=== PATIENT | male | born 1965 | race Caucasian/White ===

== ENCOUNTER 2016-10-12 11:31 | Emergency (ER) | payer OTHER ==
[~2016-10-12] VITALS: Ht 170.2 cm; Wt 122.8 kg
[~2016-10-12 11:31] MED LIST: ATENOLOL100 MG PO; BENADRYL ALLERG25 MG PO; CLEOCIN300 MG PO; CLINDAMYCIN HC300 MG PO; COLCRYS0.6 MG PO; CYMBALTA30 MG PO; DILAUDID 11 MG/1 ML IV; HYZAAR 100-21 TABLET PO; LEVOTHROID125 MCG PO; LOPID600 MG PO; PREDNISONE20 MG PO; SOMA350 MG PO; VICODIN 5-3001 EACH PO; VICODIN,LORT1 TABLET PO
[2016-10-12 12:00] VITALS: BP 128/91
== END 2016-10-12 13:21 | disposition left against medical advice (07) ==
LOC: EME → EDBD 11:31 → EME 13:21
DX: T42.8X1A Poisoning by antiparkinsonism drugs and other central muscle-tone depressants, accidental (unintentional), initial encounter (principal); I10 Essential (primary) hypertension; E03.9 Hypothyroidism, unspecified; M19.90 Unspecified osteoarthritis, unspecified site
CPT/HCPCS: 80053; 81003; 85027; 99281; 99284; G0480

== ENCOUNTER 2017-11-02 18:51 | Inpatient (IN) | payer OTHER ==
[~2017-11-02] VITALS: Ht 170.2 cm; Wt 129.8 kg
[~2017-11-02 18:51] MED LIST changes: -LEVOTHROID125 MCG PO; +SYNTHROID125 MCG PO
[2017-11-02 19:58] LABS: HEMATOCRIT 38.2 % (38.0-50.0); HEMOGLOBIN 13.4 G/DL (12.5-16.6); MCH 31.2 PG (29.0-34.0); MCHC 35.1 G/DL (30.0-36.0); PLATELET COUNT 255 K/uL (156-360); RBC DIS.WIDTH-CV 13.7 % (11.8-14.6); RBC DIS.WIDTH-SD 44.7 % (39-53); RED BLOOD COUNT 4.29 M/uL (4.00-5.50); WHITE BLOOD COUNT 15.8 K/uL (4.1-10.2)
[2017-11-02 20:04] LABS: ALBUMIN 3.7 g/dL (3.2-4.8); CHLORIDE 105 mEq/L (99-109); POTASSIUM 3.4 mEq/L (3.7-5.4); SODIUM 139 mEq/L (136-147)
[2017-11-02 20:07] LABS: GLUCOSE 222 mg/dL (70-99); TOTAL PROTEIN 8.2 g/dL (6.4-8.3)
[2017-11-02 20:09] LABS: TOTAL BILIRUBIN 0.1 mg/dL (0.0-1.0)
[2017-11-02 20:10] LABS: ALKALINE PHOSPHATASE 118 IU/L (3-129); GFR ESTIMATE (CALCULATED) > 59 mL/min/ (58.99-99999)
[2017-11-02 20:11] LABS: UREA NITROGEN (BUN) 31 mg/dL (9-23)
[2017-11-02 20:12] LABS: AST (GOT) 27 IU/L (2-34)
[2017-11-02 20:13] LABS: ALT (GPT) 34 IU/L (3-49)
[2017-11-02] MEDS ORDERED: METFORMIN HCL500 MG PO (23:20)
[2017-11-02] MEDS ORDERED: AMARYL4 MG PO (23:20)
[2017-11-02] MEDS ORDERED: GEMFIBROZIL600 MG PO (23:20)
[2017-11-02] MEDS ORDERED: IBUPROFEN400 MG PO (23:20)
[2017-11-02] MEDS ORDERED: LISINOPRIL2.5 MG PO (23:20)
[2017-11-02] MEDS ORDERED: TRESIBA FL100 UNIT/1 SC (23:21)
[2017-11-02] MEDS ORDERED: GABAPENTIN300 MG PO (23:21)
[2017-11-03 05:15] VITALS: BP 128/85
[2017-11-03 05:41] LABS: HEMATOCRIT 35.9 % (38.0-50.0); HEMOGLOBIN 12.4 G/DL (12.5-16.6); MCHC 34.5 G/DL (30.0-36.0); MCV 89.8 FL (86-99); PLATELET COUNT 278 K/uL (156-360); RBC DIS.WIDTH-CV 13.9 % (11.8-14.6); RBC DIS.WIDTH-SD 45.7 % (39-53); WHITE BLOOD COUNT 18.2 K/uL (4.1-10.2)
[2017-11-03 06:48] LABS: CHLORIDE 104 MEQ/L (99-109); CREATININE 0.7 MG/DL (0.6-1.3); GFR ESTIMATE (CALCULATED) > 59 mL/min/ (58.99-99999); GLUCOSE 230 mg/dL (70-99); POTASSIUM 3.7 MEQ/L (3.7-5.4); SODIUM 137 MEQ/L (136-147); UREA NITROGEN (BUN) 18 mg/dL (9-23)
[2017-11-03 09:15] VITALS: BP 138/90
[2017-11-03 11:18] VITALS: BP 122/73
[2017-11-03 15:40] VITALS: BP 131/76
[2017-11-03 21:00] VITALS: BP 171/75
[2017-11-04 04:03] VITALS: BP 139/65
[2017-11-04 11:02] VITALS: BP 140/8
[2017-11-04 16:38] VITALS: BP 168/84
[2017-11-04 21:00] VITALS: BP 155/78
[2017-11-05 00:06] VITALS: BP 129/71
[2017-11-05 05:07] VITALS: BP 154/86
[2017-11-05 05:45] LABS: HEMATOCRIT 32.3 % (38.0-50.0); HEMOGLOBIN 10.8 G/DL (12.5-16.6); MCH 30.4 PG (29.0-34.0); MCHC 33.4 G/DL (30.0-36.0); PLATELET COUNT 290 K/uL (156-360); RBC DIS.WIDTH-CV 14.2 % (11.8-14.6); RBC DIS.WIDTH-SD 47.3 % (39-53); RED BLOOD COUNT 3.55 M/uL (4.00-5.50); WHITE BLOOD COUNT 16.6 K/uL (4.1-10.2)
[2017-11-05 08:08] VITALS: BP 130/74
[2017-11-05 10:25] VITALS: BP 133/79
[2017-11-05 13:48] LABS: HEMOGLOBIN A1c (GLYCOHEMOGLOB) 11.2 % (Below 5.7)
[2017-11-05 16:01] VITALS: BP 125/82
[2017-11-05 19:00] VITALS: BP 153/77
[2017-11-06 00:09] VITALS: BP 137/82
[2017-11-06 04:07] VITALS: BP 137/85
[2017-11-06 06:17] LABS: HEMATOCRIT 30.4 % (38.0-50.0); HEMOGLOBIN 10.5 G/DL (12.5-16.6); MCV 91.6 FL (86-99)
[2017-11-06 06:34] LABS: CHLORIDE 108 MEQ/L (99-109); CREATININE 0.5 MG/DL (0.6-1.3); GFR ESTIMATE (CALCULATED) > 59 mL/min/ (58.99-99999); GLUCOSE 188 mg/dL (70-99); MAGNESIUM 1.5 mg/dl (1.3-2.7); PHOSPHORUS 2.4 mg/dL (2.5-4.9); POTASSIUM 3.7 MEQ/L (3.7-5.4); SODIUM 141 MEQ/L (136-147); UREA NITROGEN (BUN) 11 mg/dL (9-23)
[2017-11-06 11:15] VITALS: BP 140/91
[2017-11-06] MEDS ORDERED: HYDROCODON-ACE1 EAC9 PO (14:58)
[2017-11-06] MEDS ORDERED: DILAUDID2 MG PO (14:58)
[2017-11-06] MEDS ORDERED: KEFLEX500 MG PO (15:06)
[2017-11-06 15:25] VITALS: BP 168/76
== END 2017-11-06 18:09 | disposition home or self-care (01) | DRG 854 ==
LOC: EME 18:51 → 5WEST 23:26 → EDOF 23:26 → ENRESERV 23:34 → EDOF 11-03 01:32 → ENRESERV 11-03 01:36 → 5WEST 11-03 05:06
PROVIDERS: Hospitalist; Internal Medicine; Thoracic Surgery (Cardiothoracic Vascular Surgery)
DX: A41.9 Sepsis, unspecified organism (principal); L02.11 Cutaneous abscess of neck; L03.313 Cellulitis of chest wall; L02.01 Cutaneous abscess of face; A49.01 Methicillin susceptible Staphylococcus aureus infection, unspecified site; E11.9 Type 2 diabetes mellitus without complications; Z68.41 Body mass index [BMI] 40.0-44.9, adult; L73.9 Follicular disorder, unspecified; I10 Essential (primary) hypertension; E78.5 Hyperlipidemia, unspecified; E03.9 Hypothyroidism, unspecified; E66.9 Obesity, unspecified; M19.90 Unspecified osteoarthritis, unspecified site; M10.9 Gout, unspecified; G89.4 Chronic pain syndrome; Z86.14 Personal history of Methicillin resistant Staphylococcus aureus infection; Z79.4 Long term (current) use of insulin; Z82.5 Family history of asthma and other chronic lower respiratory diseases; Z82.49 Family history of ischemic heart disease and other diseases of the circulatory system; Z80.7 Family history of other malignant neoplasms of lymphoid, hematopoietic and related tissues
CPT/HCPCS: 70491; 71260; 80048; 80053; 80202; 82948; 83036; 83605; 83735; 84100; 85014; 85018; 85027; 87040; 87070; 87075; 87077; 87147; 87186; 87205; 99281; 99284; J0131; J0330; J0690; J1170; J1644; J1650; J1815; J2250; J2405; J2543; J2710; J3010; J3370; J7030; J7040; J7050; J7643; S0020